=== PATIENT | male | born 1995 | race Caucasian/White ===

== ENCOUNTER 2019-03-06 13:56 | Emergency (ER) | payer MEDICARE ==
[~2019-03-06] VITALS: Ht 162.5 cm; Wt 95.3 kg
[2019-03-06] MEDS ORDERED: CEFADROXIL500 M1 PO (14:15)
== END 2019-03-06 14:23 | disposition home or self-care (01) ==
LOC: ED 13:56
DX: L08.9 Local infection of the skin and subcutaneous tissue, unspecified (principal); R42 Dizziness and giddiness; R50.9 Fever, unspecified; R00.0 Tachycardia, unspecified; L53.9 Erythematous condition, unspecified